=== PATIENT | male | born 1980 | race African-American/Black ===

== ENCOUNTER 2020-11-27 05:20 | Inpatient (IN) | payer OTHER ==
[2020-11-27] VITALS (26 sets, daily range): BP systolic 119–225; BP diastolic 72–152
[~2020-11-27] VITALS: Ht 167.6 cm; Wt 89.8 kg
[2020-11-27 05:47] LABS: ABSOLUTE NEUTROPHILS 2.6 thou/uL (1.4-8.2); BASOPHILS 1.3 % (0.0-2.0); EOSINOPHILS 0.9 % (0.0-3.0); HEMATOCRIT 39.8 % (42.0-52.0); HEMOGLOBIN 13.6 gm/dL (14.0-18.0); LYMPHOCYTES 40.8 % (24.0-44.0); MCH 29.3 pg (26.0-34.0); MCHC 34.2 g/dL (28.0-37.0); MCV 85.6 fL (80.0-100.0); MONOCYTES 7.9 % (1.0-8.0); PLATELET COUNT 291 thou/uL (150-400); POLYS 49.1 % (36.0-66.0); RBC 4.65 mil/uL (4.50-6.00); RDW 14.4 % (10.5-14.5); WBC 5.3 thou/uL (4.0-11.0)
--- NOTE | 2020-11-27 06:00 | NUR ---
IN ROOM PRIOT TO PT GOING TO CT PT VOMITING INTO TRASH CAN, PT FLAILING IN ROOM REFUSING TO PLACE MASK OVER NOSE AND MOUTH COUGHING WITHOUT COVERING MOUTH. PT REFUSING TO REMAIN IN BED. EXPLAINED TO PT THAT ALL THE ACTIVITY HE WAS DOING WAS TOO MUCH AT AND THAT HE WAS GETTING HIM SELF WORKED UP. PT SWEATING AND ASKING FOR A FAN EXPLAINED THAT WE DO NOT HAVE A FAN AND DUE TO HIS COVID SYMPTOMS AND PREVIOUS POSITIVE TEST WE WOULD NOT BE ABLE TO PROVIDE A FAN. PT CONTIUING TO ATTEMPT TO GET OUT OF BED AND PULLING MASK DOWN BELOW CHIN. PT CONT FO FLAIL ARMS AND LEGS IN AND OUT OF BED. THEORETICAL PHYSICIST ALSO AT BEDSIDE ATTEMPTING TO EDUCATE AND CALM PT.
[2020-11-27 06:01] LABS: ANION GAP 19 mmol/L (7-16); BUN 16 mg/dL (7-18); CALCIUM 9.5 mg/dL (8.5-10.1); CHLORIDE 100 mmol/L (98-107); CO2 21 mmol/L (21-32); CREATININE 1.7 mg/dL (0.7-1.3); GLUCOSE 146 mg/dL (74-106); POTASSIUM 3.8 mmol/L (3.5-5.1); SODIUM 140 mmol/L (136-145)
[2020-11-27 06:09] LABS: TROPONIN-I <0.06 ng/mL (<0.06)
--- NOTE | 2020-11-27 06:35 | NUR ---
WAS IN ROOM ADMINISTERING ATIVAN TO PT. PT SIGNIFICANT OTHER ON SPEAKER PHONE. I WAS EXPLAINING THAT THE PT COULD NOT HAVE A VISITOR DUE TO HIM HAVING TESTED POSITIVE FOR COVID AND CURRENTLY HAVING COVID SYMPTOMS. PT SIG OTHER STARTED SCREAMING AT ME THAT PT WAS NOT HAVIG COVID SYMPTOMS AND WOULD NOT LISTEN TO MY ATTEMPTS TO EXPLAIN PT SYMPTOMS TO HER. PT SIG OTHER THEN STARTED MAKING THREATS TO STAFF STATING THAT SHE WAS GOING TO COME UP HERE AND THEN THE PROBLEMS WOULD START. PT SIG OTHER STATING THAT SHE WAS COMING TO SIGN HIM OUT AND TO REPORT ME TO MY MANGER FOR BEING RUDE TO HER AND PUTTING THE PATIENT IN DNAGER. BECUASE I WAS REPEATEDLY ASKING THE PT TO PUT HIS MASK UP OVER HIS MOUTH AND NOSE, ASKING HIM TO NOT FALI ARMS AROUND AND THAT WE DID NOT HAVE A FAN AVALIABLE FOR THE PATIENT. AEROBICS INSTRUCTOR AND SECURITY NOTIFIED.
[2020-11-27 09:13] LABS: BE(vivo) -1.9 mmol/L (-2 to +3); HCO3 22.3 mmol/L (22.0-26.0); PCO2 36.6 mmHg (35.0-45.0); PO2 70.2 mmHg (80.0-100.0); pH 7.403 (7.360-7.450); sO2 94.3 % (92.0-98.0)
[2020-11-27 09:24] LABS: AMP/METHAMP Negative (Negative); BARBITURATES Negative (Negative); BENZODIAZEPINES Negative (Negative); COCAINE POSITIVE (Negative); METHADONE Negative (Negative); OPIATES Negative (Negative); PCP Negative (Negative)
--- NOTE | 2020-11-27 10:06 | NUR ---
40 YO MALE ADMITTED TO ICU ROOM 243 VIA CART FROM ED AT 0952. PLACED ON HYDROELECTRIC PLANT TECHNICIAN. CARDENE CONTINUES WITH BP CONTINUOUSLY MONITORED.
[2020-11-27] MEDS ORDERED: CARVEDILOL25 MG PO (10:28)
[2020-11-27] MEDS ORDERED: HYDROCHLOROTH12.5 M1 PO (10:29)
[2020-11-27] MEDS ORDERED: SPIRONOLACTONE25 MG PO (10:30)
--- NOTE | 2020-11-27 11:13 | EKG ---
[place] [address] [address] [place] [address] ELECTROCARDIOGRAM REPORT Name: LIS ERNST Room #: 243-P ADM IN M.R.#: [id number] Admission: 11/27/20 Attend Phys: Manny Daniels MD Discharge: Date of : 80 Report #: [id number] [facility] ED Test Date: 2020-11-27 Test Time: 05:24:49 Pat Name: LIS ERNST Department: Room: 243 Gender: M Senior Policy Associate: : 1980 Requested By: Carleen León Order Number: [id number] MD: Carson Chakraborty Measurements Intervals [place] Rate: 93 P: 34 [place]: 142 QRS: -32 QRSD: 99 T: 135 QT: 395 QTc: 492 Interpretive Statements Sinus rhythm Left atrial enlargement LVH with secondary repolarization abnormality Lateral infarct, acute (LAD) J Point ST elevation, probably due to LVH No previous ECG available for comparison Electronically Signed On 11-27-2020 11:13:20 MANAGER PROVIDER RELATIONS by Carson Chakraborty [email or web address] <ELECTRONICALLY SIGNED> By: Carson Chakraborty MD, [facility] 11/27/20 1113 D: 01523 3 Carson Chakraborty MD, FACC /EPI
--- NOTE | 2020-11-27 12:17 | NUR ---
40 year old male with history of HTN who has been noncompliant with BP meds "for many days" and brought to the ED via ground transportation. Pt thinks he has hx of high cholesterol too. Patient was COVID NEGATIVE on 11-27-20 per PCR in the ED. He presents to the ED w/ complaints of pain in the chest and upper abdomen in which his family called EMS. BP was found to be 225/135 when EMS arrived. Of note patient reports testing positive for COVID on 11/09 and then when he re-checked on 11/23/20 he was told he was negative. The patient was admitted with Chest pain with HTN Urgency, Alcohol/tobacco abuse, Recent COVID infection per patient, RASTA and CKD. The ED and Nursing admit record reveal patient is A&O x4. The patients Lolis Rosales is listed as the next of kin and republican of notification and phone number of [phone]. Called and spoke with Lolis and introduced the role of CM. She states he has never used home health, skilled or DME in the past and confirms the patient is uninsured. CM will follow for discharge needs.
--- NOTE | 2020-11-27 13:17 | NUR ---
BEDSIDE CARDIAC ECHO IN PROGRESS
--- NOTE | 2020-11-27 13:54 | 2DMMODE ---
[facility] [place] [address] 2 D/M-MODE ECHOCARDIOGRAM Name: LIS ERNST Room #: 243-P ADM IN M.R.#: [id number] Admission: 11/27/20 Attend Phys: Manny Daniels MD Discharge: Date of : 80 Report #: [id number] THIS REPORT FOR: cc: [facility] Carson Chakraborty MD [facility] ~ APPROVED REPORT Study performed: 11/27/2020 13:10:03 EXAM: Comprehensive 2D, Doppler, and color-flow Echocardiogram Patient Location: ICU Room #: 243 Status: routine BSA: 2.02 HR: 83 bpm BP: 146/82 mmHg Rhythm: NSR Other Information Study Quality: Good Indications Hypertensive urgency. Hx: HTN, HLD, tobacco and drug abuse. 2D Dimensions RVDd: 38.22 mm IVSd: 14.46 (7-11mm) LVOT Diam: 20.15 (18-24mm) LVDd: 59.13 mm PWd: 14.13 (7-11mm) Ascending Ao: 37.68 (22-36mm) Aortic Root: 40.17 mm Volumes Left Atrial Volume (Systole) Single Plane 4CH: 69.86 mL Single Plane 2CH: 79.10 mL LA ESV Index: 41.00 mL/m2 Aortic Valve AoV Peak Alex.: 1.50 m/s AO Peak Gr.: 9.00 mmHg LVOT Max P.09 mmHg LVOT Max V: 1.01 m/s TOBY Vmax: 2.15 cm2 [facility] [address] [place] [address] 2 D/M-MODE ECHOCARDIOGRAM Name: LIS ERNST Room #: 243-P ADM IN M.R.#: [id number] Admission: 11/27/20 Attend Phys: Manny Daniels MD Discharge: Date of : 80 Report #: [id number] Mitral Valve E/A Ratio: 1.5 MV Decel. Time: 208.73 ms MV E Max Alex.: 0.93 m/s MV A Alex.: 0.60 m/s MV PHT: 60.53 ms IVRT: 100.35 ms Pulmonary Valve PV Peak Alex.: 1.00 m/s PV Peak Gr.: 3.99 mmHg Pulmonary Vein P Vein S: 0.54 m/s P Vein A: 0.29 m/s P Vein D: 0.45 m/s P Vein A Dur.: 110.7 msec P Vein S/D Ratio: 1.20 Tricuspid Valve TR Peak Alex.: 2.05 m/s RAP Estimate: 5.00 mmHg TR Peak Gr.: 17.00 mmHg PA Pressure: 22.00 mmHg Left Ventricle Left ventricle is mildly dilated. Moderate concentric left ventricular hypertrophy. Left ventricular systolic function is mild to moderately decreased. LVEF is 40-45%. Moderate diastolic dysfunction is present (pseudonormal filling). Right Ventricle The right ventricle is normal size. The right ventricular systolic function is normal. Atria Left atrium is mild to moderately dilated. The right atrium size is normal. Aortic Valve The aortic valve is normal in structure. No aortic regurgitation is present. There is no aortic valvular stenosis. Mitral Valve The mitral valve is normal in structure. Mild mitral regurgitation. Tricuspid Valve The tricuspid valve is normal in structure. Trace tricuspid regurgitation. Estimated PAP is 20-25mmHg. [facility] [place] [address] [place] [address] 2 D/M-MODE ECHOCARDIOGRAM Name: LIS ERNST Room #: 243-P ADM IN M.R.#: [id number] Admission: 11/27/20 Attend Phys: Manny Daniels MD Discharge: Date of : 80 Report #: [id number] Pulmonic Valve The pulmonary valve is normal in structure. Mild pulmonic regurgitation. Great Vessels Aortic root is mildly dilated (3.9cm). The ascending aorta is borderline dilated. IVC is normal in size and collapses >50% with inspiration. Pericardium There is no pericardial effusion. <Conclusion> Normal left ventricular size Moderate concentric hypertrophy Ejection fraction 45% mild global hypokinesis Normal right ventricular size and function Mild left atrial enlargement Color-flow Doppler study was performed of the aortic/mitral/tricuspid/pulmonary valve Normal aortic valve structure and function Mild mitral valve insufficiency Trace tricuspid valve insufficiency Pulmonary artery systolic pressure estimated at 25 mmHg No pericardial effusion <ELECTRONICALLY SIGNED> By: Carson Chakraborty MD, FACC 11/27/20 1354 1354 1354 Carson Chakraborty MD, FACC /INF
[2020-11-28] VITALS (10 sets, daily range): BP systolic 130–157; BP diastolic 75–97
--- NOTE | 2020-11-28 07:53 | NUR ---
PT PROGRESSING TOWARD GOALS. DENIES ANY CP OR SOB. 02 2L PRN WHILE SLEEPING. MONITOR SR. SBP LESS THAN 160 WITH CARDENE GTT AT LOW DOSE 2.5MCG/MIN. CONT PLAN OF CARE
--- NOTE | 2020-11-28 11:25 | NUR ---
0730-UP IN CHAIR UPON EMETERING ROOM.--VW 1130-CARDENE OFF p AM MEDS GIVEN. PT UP AD FLORENCIA IN THE ROOM. WANTS TO GO HOME. D/W CV LIQUID FLOOR AND WALL APPLIER POLYSUBSTANCE & ETOH HX.--VW
--- NOTE | 2020-11-28 11:26 | NUR ---
ORDERS RECEIVED FOR EVAL AND TREAT. SPOKE WITH NURSING WHO STATES HE IS UP AD FLORENCIA IN ROOM AND NOT ON FALL PRECAUTIONS. SPOKE WITH Pt WHO STATES HE IS HAVING NO DIFFICULTY WITH MOBILITY AND IS DECLINING A FORMAL P.T. EVAL. NURSING AWARE AND IN AGREEMENT
[2020-11-28] MEDS ORDERED: AMLODIPINE BESY10 MG PO (13:32)
[2020-11-28] MEDS ORDERED: COZAAR100 MG PO (13:32)
[2020-11-28] MEDS ORDERED: CARVEDILOL12.5 MG PO (13:32)
== END 2020-11-28 14:03 | disposition left against medical advice (07) | DRG 304 ==
LOC: ER 05:20 → EROBS 07:50 → ICU 09:50
PROVIDERS: Emergency Medicine; ADMIT Internal Medicine; ATTEND Internal Medicine
DX: I16.1 Hypertensive emergency (principal); G92 Toxic encephalopathy; N17.9 Acute kidney failure, unspecified; I13.0 Hypertensive heart and chronic kidney disease with heart failure and stage 1 through stage 4 chronic kidney disease, or unspecified chronic kidney disease; Z86.16 Personal history of COVID-19; F12.90 Cannabis use, unspecified, uncomplicated; F17.210 Nicotine dependence, cigarettes, uncomplicated; E78.5 Hyperlipidemia, unspecified; F19.10 Other psychoactive substance abuse, uncomplicated; N18.9 Chronic kidney disease, unspecified; F10.10 Alcohol abuse, uncomplicated; I50.9 Heart failure, unspecified; Z20.822 Contact with and (suspected) exposure to COVID-19; Z53.29 Procedure and treatment not carried out because of patient's decision for other reasons; Z86.73 Personal history of transient ischemic attack (TIA), and cerebral infarction without residual deficits; Z79.899 Other long term (current) drug therapy; Z88.8 Allergy status to other drugs, medicaments and biological substances; Z91.14 Patient's other noncompliance with medication regimen; Z71.41 Alcohol abuse counseling and surveillance of alcoholic; Z71.6 Tobacco abuse counseling
CPT/HCPCS: 10078